=== PATIENT | male | born 2000 | race Caucasian/White ===

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

== ENCOUNTER 2019-05-06 14:13 | Emergency (ER) | payer OTHER ==
[~2019-05-06] VITALS: Ht 177.8 cm; Wt 68.9 kg
[2019-05-06 14:24] VITALS: BP 127/82; Ht 177.8 cm; Wt 68.9 kg
== END 2019-05-06 17:32 | disposition home or self-care (01) ==
LOC: ED 14:13
DX: B34.9 Viral infection, unspecified (principal); R03.0 Elevated blood-pressure reading, without diagnosis of hypertension; Z88.2 Allergy status to sulfonamides; Z88.1 Allergy status to other antibiotic agents

== ENCOUNTER 2020-03-13 16:16 | Emergency (ER) | payer OTHER ==
[~2020-03-13] VITALS: Ht 182.9 cm; Wt 75.7 kg
[2020-03-13 16:21] VITALS: Ht 182.9 cm; Wt 75.7 kg
[2020-03-13 17:02] VITALS: BP 128/76
== END 2020-03-13 17:02 | disposition home or self-care (01) ==
LOC: ED 16:16
DX: N48.1 Balanitis (principal); Z88.2 Allergy status to sulfonamides; Z88.1 Allergy status to other antibiotic agents